=== PATIENT | female | born 2000 | race Asian ===

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

== ENCOUNTER 2020-03-11 18:39 | Emergency (ER) | payer OTHER ==
[~2020-03-11] VITALS: Ht 167.6 cm; Wt 88.5 kg
[2020-03-11 19:02] VITALS: BP 140/75; Ht 167.6 cm; Wt 88.5 kg
== END 2020-03-11 20:25 | disposition home or self-care (01) ==
LOC: ED 18:39
DX: S93.401A Sprain of unspecified ligament of right ankle, initial encounter (principal); J45.909 Unspecified asthma, uncomplicated; X58.XXXA Exposure to other specified factors, initial encounter; Y93.89 Activity, other specified; Y92.89 Other specified places as the place of occurrence of the external cause; Y99.8 Other external cause status